=== PATIENT | female | born 1985 | race Caucasian/White ===

== ENCOUNTER 2020-12-02 12:07 | Inpatient (IN) ==
[2020-12-02] MEDS ORDERED: OXYTOCIN 30 UNITS/500 ML BAG IV PRN ×3 (13:00→23:54)
[2020-12-02 14:02] LABS: Hematocrit (blood only) 35.3 % (37-47); Hemoglobin 12.3 g/dL (12.0-16.0); Mean Corpuscular Hemoglobin 29.4 pg (25-34); Mean Corpuscular Hgb Conc 34.8 g/dL (32-36); Mean Corpuscular Volume 84.2 fL (80-100); Platelet Count 73 K/uL (130-400); Platelet Estimate Decreased (Normal); RDW Coefficient of Variation 17.2 % (11.5-14.5); Red Blood Count 4.19 M/uL (4.2-5.4); White Blood Count 9.76 K/uL (4.8-10.8)
[2020-12-02] MEDS: LACTATED RINGER'S 1,000 ML IV PRN ×2 (14:35→22:28)
--- NOTE | 2020-12-02 14:47 | Obstetrical Progress Note ---
Date of Service December 02, 2020 Assessment & Plan Admission and Anticipated Discharge Date Admission Date: December 02, 2020 Subjective Admit Note 35 F P0000 at 37 weeks admitted with SROM confirmed in office. Cervix is 1/70/- 2/vertex/posterior. GBS is negative. Admitted from office with questionable prolonged rupture of membranes since Tuesday. FHT Cat 1. Covid is pending. Will starat Oxytocin to augment contractions. EFW 8 lbs. Results & Data ([facility]) Vital Signs (Past 12 Hours) Vital Signs Temp Pulse Resp BP 12/02/20 14:00 37.3 C 20 12/02/20 12:52 96 H 118/80 12/02/20 12:34 101 H 136/90 12/02/20 12:33 104 H 125/81 12/02/20 12:14 120 H 131/92
--- NOTE | 2020-12-02 18:16 | Obstetrical Progress Note ---
Date of Service December 02, 2020 Assessment & Plan Admission and Anticipated Discharge Date Admission Date: December 02, 2020 Physical Exam Genitourinary: Manual OB Exam: + cervical dilation 2 cm, + cervical effacement 80%, + station -2 and + amniotic fluid clear OB Exam Monitor Tracing: + external FHT monitor used, + external uterine monitor used, + category I and + normal FHT variability Results & Data ([facility]) Vital Signs (Past 12 Hours) Vital Signs Temp Pulse Resp BP 12/02/20 17:31 95 H 135/85 12/02/20 17:30 36.9 C 12/02/20 16:38 100 H 126/77 12/02/20 15:30 37.3 C 95 H 18 114/74 12/02/20 14:51 100 H 113/78 12/02/20 14:00 37.3 C 20 12/02/20 12:52 96 H 118/80 12/02/20 12:34 101 H 136/90 12/02/20 12:33 104 H 125/81 12/02/20 12:14 120 H 131/92
[2020-12-02] MEDS ORDERED: BUTORPHANOL TARTRATE 1 MG/ML VIAL IV PRN (21:17)
--- NOTE | 2020-12-02 23:26 | Delivery Summary ---
Vaginal Delivery Summary Date of Service December 02, 2020 Vaginal Delivery Summary Delivery Note live female over intact perineum MIYA with delayed cord clamping and Apgars 8/9 with weight pending. Cord blood obtained followed by spontaneous delivery of intact placenta, No tears. EBL 200 ml. Final sponge and instrument count are correct. Mom and baby stable.
[2020-12-02] MEDS ORDERED: SUPERCREAM 0.870% 15 GM JAR EXT PRN (23:54)
[2020-12-02] MEDS ORDERED: bisacodyL 10 MG SUPP PR PRN (23:54)
[2020-12-02] MEDS ORDERED: ACETAMINOPHEN 325 MG TAB PO PRN (23:54)
[2020-12-02] MEDS ORDERED: DIPHTHERIA/TETANUS/PERTUSSIS 0.5 ML SYR/VIAL IM ONE (23:54)
[2020-12-02] MEDS ORDERED: BENZOCAINE 20% AER SPR 82.5 GM CAN EXT PRN (23:54)
[2020-12-02] MEDS ORDERED: HYDROCORTISONE ACETATE 25 MG SUPP PR PRN (23:54)
[2020-12-02] MEDS ORDERED: PROMETHAZINE HCL 25 MG TAB PO PRN (23:54)
[2020-12-03] MEDS ORDERED: ONDANSETRON 4 MG OD TAB PO PRN (00:16)
[2020-12-03 06:58] LABS: Mean Corpuscular Hgb Conc 32.7 g/dL (32-36)
[2020-12-03 07:23] LABS: Hematocrit (blood only) 33.6 % (37-47); Mean Corpuscular Hemoglobin 27.8 pg (25-34); Mean Corpuscular Volume 84.8 fL (80-100); Red Blood Count 3.96 M/uL (4.2-5.4); White Blood Count 14.55 K/uL (4.8-10.8)
[2020-12-03 07:27] LABS: Platelet Count 95 K/uL (130-400); Platelet Estimate Decreased (Normal)
[2020-12-03] MEDS: PRENATAL VITAMIN 1 TAB PO SCH (07:37)
[2020-12-03] MEDS: DOCUSATE SODIUM 100 MG CAP PO SCH ×2 (07:37→21:09)
--- NOTE | 2020-12-03 08:31 | Obstetrical Progress Note ---
Date of Service December 03, 2020 Assessment & Plan Admission and Anticipated Discharge Date Admission Date: December 02, 2020 Subjective Patient is seen and examined. She feels well, no complaints. Ambulating without dizziness Voiding without difficulty Tolerating regular diet with out N&V Bleeding is minimal No fever/ chills/ CP/ SOB/ N&V/ Leg pain Breast feeding without problems Lab Results 12/02/20 12/02/20 12/03/20 Range/Units 13:03 13:17 06:04 WBC 9.76 14.55 H (4.8-10.8) K/uL RBC 4.19 L 3.96 L (4.2-5.4) M/uL Hgb 12.3 11.0 L (12.0-16.0) g/dL Hct 35.3 L 33.6 L (37-47) % MCV 84.2 84.8 (80-100) fL MCH 29.4 27.8 (25-34) pg MCHC 34.8 32.7 (32-36) g/dL RDW Std Deviation 53.0 H 53.0 H (36.4-46.3) fL RDW Coeff of Caitlyn 17.2 H 17.0 H (11.5-14.5) % Plt Count 73 L 95 L (130-400) K/uL Platelet Estimate Decreased L Decreased L (Normal) SARS-CoV-2, RNA, NAAT NEGATIVE (NEGATIVE) Vital Signs Temp Pulse Pulse Resp BP BP Pulse Ox 12/03/20 08:00 36.8 C 96 H 18 110/78 94 12/03/20 04:55 37.2 C 116 H 18 113/78 12/03/20 01:45 36.6 C 96 H 18 112/79 12/03/20 01:25 85 123/68 12/03/20 01:10 95 H 118/65 12/03/20 00:55 94 H 18 119/66 12/03/20 00:40 86 126/72 12/03/20 00:25 95 H 18 122/66 12/03/20 00:10 93 H 18 119/62 12/02/20 23:55 90 18 138/78 12/02/20 23:40 96 H 18 96/56 L 12/02/20 23:25 36.7 C 100 H 18 102/55 L 12/02/20 23:17 106 H 126/80 12/02/20 22:40 93 H 97 12/02/20 22:35 97 H 96 12/02/20 22:30 101 H 98 12/02/20 22:29 83 133/86 12/02/20 22:25 95 H 94 12/02/20 22:20 86 98 12/02/20 22:15 83 97 12/02/20 22:10 93 H 94 12/02/20 22:05 85 98 12/02/20 22:00 83 95 12/02/20 21:55 84 96 12/02/20 21:54 84 94 12/02/20 21:52 90 139/85 12/02/20 21:50 81 93 12/02/20 21:48 82 92 12/02/20 21:47 71 134/84 12/02/20 21:45 95 H 98 12/02/20 21:40 93 H 97 12/02/20 21:23 36.7 C 12/02/20 21:11 96 H 118/65 PE: General: Alert, orientedx3, NAD Abd: soft, NT, fundus firm, below Umbilicus Perineum intact, Lochia rubra minimal Ext; NT, no edema AP: 35 yo s/p , ppd# 1 VSS Afebrile doing well Continue routine care All questions were answered D/C home tomorrow Results & Data ([facility]) Vital Signs (Past 12 Hours) Vital Signs Temp Pulse Pulse Resp BP BP Pulse Ox 12/03/20 08:00 36.8 C 96 H 18 110/78 94 12/03/20 04:55 37.2 C 116 H 18 113/78 12/03/20 01:45 36.6 C 96 H 18 112/79 12/03/20 01:25 85 123/68 12/03/20 01:10 95 H 118/65 12/03/20 00:55 94 H 18 119/66 12/03/20 00:40 86 126/72 12/03/20 00:25 95 H 18 122/66 12/03/20 00:10 93 H 18 119/62 12/02/20 23:55 90 18 138/78 12/02/20 23:40 96 H 18 96/56 L 12/02/20 23:25 36.7 C 100 H 18 102/55 L 12/02/20 23:17 106 H 126/80 12/02/20 22:40 93 H 97 12/02/20 22:35 97 H 96 12/02/20 22:30 101 H 98 12/02/20 22:29 83 133/86 12/02/20 22:25 95 H 94 12/02/20 22:20 86 98 12/02/20 22:15 83 97 12/02/20 22:10 93 H 94 12/02/20 22:05 85 98 12/02/20 22:00 83 95 12/02/20 21:55 84 96 12/02/20 21:54 84 94 12/02/20 21:52 90 139/85 12/02/20 21:50 81 93 12/02/20 21:48 82 92 12/02/20 21:47 71 134/84 12/02/20 21:45 95 H 98 12/02/20 21:40 93 H 97 12/02/20 21:23 36.7 C 12/02/20 21:11 96 H 118/65
[2020-12-03] MEDS ORDERED: NON-FORMULARY MEDICATION (Prenatal Vit No.130-Iron-Folic [Prenatal Vitamin] 27 mg iron- 80 PO SCH (09:00)
[2020-12-03] MEDS: IBUPROFEN 600 MG TAB PO PRN ×2 (11:32→21:09)
[2020-12-03] MEDS ORDERED: bisacodyL 5 MG TABEC PO SCH (20:00)
[2020-12-04 06:54] LABS: Hematocrit (blood only) 31.6 % (37-47); Hemoglobin 10.5 g/dL (12.0-16.0)
[2020-12-04] MEDS: DOCUSATE SODIUM 100 MG CAP PO SCH (08:26)
[2020-12-04] MEDS: PRENATAL VITAMIN 1 TAB PO SCH (08:26)
--- NOTE | 2020-12-04 09:11 | Obstetrical Progress Note ---
Date of Service December 04, 2020 Assessment & Plan Admission and Anticipated Discharge Date Admission Date: December 02, 2020 Subjective PPD#2 doing well passing gas out of bed tolerating diet well Physical Exam Constitutional: WD/WN, vitals as above comfortable fundus firm abdomen soft no edema neg Carolyn's for d/c to nesting Results & Data ([facility]) Vital Signs (Past 12 Hours) Vital Signs Temp Pulse Pulse Resp BP Pulse Ox 12/04/20 07:56 36.5 C 91 H 18 128/85 100 12/03/20 23:15 36.5 C 98 H 18 121/82 98 Laboratory Results Laboratory Results - last 72 hr 12/02/20 12/02/20 12/03/20 13:03 13:17 06:04 WBC 9.76 14.55 H RBC 4.19 L 3.96 L Hgb 12.3 11.0 L Hct 35.3 L 33.6 L MCV 84.2 84.8 MCH 29.4 27.8 MCHC 34.8 32.7 RDW Std Deviation 53.0 H 53.0 H RDW Coeff of Caitlyn 17.2 H 17.0 H Plt Count 73 L 95 L Platelet Estimate Decreased L Decreased L SARS-CoV-2, RNA, NAAT NEGATIVE 12/04/20 06:38 WBC RBC Hgb 10.5 L Hct 31.6 L MCV MCH MCHC RDW Std Deviation RDW Coeff of Caitlyn Plt Count Platelet Estimate SARS-CoV-2, RNA, NAAT
[2020-12-04] MEDS: IBUPROFEN 600 MG TAB PO PRN (12:16)
== END 2020-12-04 18:24 | disposition home or self-care (01) | DRG 807 ==
LOC: OPB 12:07 → 4S1 12:11 → 4S2 12-03 02:02